=== PATIENT | female | born 1985 | race African-American/Black ===

== ENCOUNTER → 2021-09-16 | Outpatient (CLI) | payer OTHER ==
[~2021-09-16] MED LIST: IOHEXOL 350 MG/ML 100 ML VIAL. IV ONE
--- NOTE | 2021-09-16 14:32 | RAD ---
EXAM: CT chest with contrast - pulmonary embolus protocol CLINICAL HISTORY: SHORT OF AIR COMPARISON: None. TECHNIQUE: CT of the chest following the administration of intravenous contrast during the pulmonary arterial phase. Axial, coronal and sagittal reformatted images were generated including MIP images. ---PQRS compliance statement - One or more of the following individualized dose reduction techniques were utilized for this study: 1. Automated exposure control 2. Adjustment of the mA and/or kV according to patient size 3. Use of iterative reconstruction technique--- FINDINGS: CHEST: Diagnostic quality: Suboptimal contrast bolus. Pulmonary emboli: No pulmonary emboli to the level of the segmental branches. More peripheral vessel s are not well assessed. Right heart strain: None Pulmonary arteries: Normal in caliber. Heart is not enlarged. No pericardial effusion. Mild thinning of the cardiac apex. No pleural effusion. No pneumothorax. No axillary, mediastinal or hilar lymphadenopathy. Anterior med iastinal soft tissue density likely residual thymus. 3 mm left upper lobe lung nodule (image 28) 4 mm fissural lung nodule (image 49) several additional 3 -4 mm lung nodules are seen bilaterally. Visualized Upper abdomen: Unremarkable Bones: No aggressive osseous lesion is seen. IMPRESSION: 1. Suboptimal contrast bolus. No pulmonary emboli to the level of the segmental branches. More perip heral vessels are not well assessed. 2. Several lung nodules are seen bilaterally measuring up to 4 mm. Per Fleischner Society guidelines for incidentally found solid nodules measuring less than 6 mm, no follow-up is necessary if patient is considered at low risk for lung cancer. If patient is considered to be at high risk, such as with history of smoking, then CT follow-up in about 12 months can be considered. 3. Focal thickening of the cardiac apex, of uncertain clinical significance, consider further evalua tion with echocardiogram if clinically indicated. Electronically signed by: Gato Gamez MD (09/16/2021 2:30 PM) [facility]
== END ==
LOC: RAD 13:28
PROVIDERS: ATTEND Anesthesiology
DX: R91.8 Other nonspecific abnormal finding of lung field (principal); R06.02 Shortness of breath
CPT/HCPCS: 71275; Q9967

== ENCOUNTER 2021-10-19 09:26 | Emergency (ER) | payer OTHER ==
[~2021-10-19] VITALS: Ht 162.6 cm; Wt 65.9 kg
--- NOTE | 2021-10-19 10:05 | PHYS DOC ---
Past History Additional Past Medical Histor: cyst on left ovary Past Surgical History: No Surgical History Alcohol Use: None General Adult EDM: Chief Complaint: ABDOMINAL PAIN IN HPI: HPI: Patient is a 36-year-old G1 at approximately 5 to 6 weeks gestational age based on IUI. Patient has been undergoing fertility treatments. She is here because she is having left lower abdominal cramping has been going on for about 2 weeks. Has gotten more sharp and painful recently. Patient also has a history of endometriosis affecting the left as well as a left ovarian cyst. Review of Systems: Review of Systems: All other systems within normal limits except for as noted in the HPI Allergies: Allergies: Allergies Coded Allergies Type Severity Reaction Last Updated Verified No Known Drug Allergies 09/16/21 No Physical Exam: PE: Constitutional: Well developed, well nourished, no acute distress, non-toxic appearance. [] HENT: Normocephalic, atraumatic, bilateral external ears normal, nose normal. [] Eyes: PERRLA, conjunctiva normal, no discharge. [] Neck: No rigidity, supple, no stridor. [] Cardiovascular: Regular rate and rhythm, brisk cap refill [] Lungs & Thorax: Non labored symmetric respirations, no tachypnea or respiratory distress [] Abdomen: Soft, nondistended, LLQ tenderness. Skin: Warm, dry, no erythema, no rash. [] Back: Unremarkable Extremities: No deformities, range of motion grossly intact, no lower extremity edema [] Neurologic: Alert and oriented X 3, no focal deficits noted. [] Psychologic: Affect normal, judgement normal, mood normal. [] Current Patient Data: Labs: RUN DATE: 10/19/21 [facility] *LIVE* PAGE 1 RUN TIME: 1109 Specimen Inquiry PATIENT: YMAIL PARKS ACCT: [id number] LOC: [facility] U: [id number] AGE/SX: 36/F ROOM: RE10/19/[address]: JACKY FRAGOSO MD : 1985 BED: DIS: STATUS: REG ER TLOC: SPEC #: [id number] SANTI[place]O: 10/19/21-1015 STATUS: COMP REQ #: [id number] RECD: 10/19/21-[address]: JACKY FRAGOSO MD SOURCE: VAGINAL ENTR: 10/19/[address]: MARQUES MARTÍNEZ DO [facility]: ORDERED: WET PREP COMMENTS: Has specimen been collected/obtained? Y Procedure Result WET PREP Final YEAST NONE SEEN TRICHOMONAS NONE SEEN CLUE CELLS NONE SEEN WBCS NONE PRESENT RBCS NO RBCS SEEN SQUAMOUS EPS MANY Vital Signs: Vital Signs Date Time Temp Pulse Resp B/P (MAP) Pulse Ox O2 Delivery O2 Flow Rate FiO2 10/19/21 09:37 98.1 78 16 121/86 98 100 Room Air EKG: EKG: [] Radiology/Procedures: Radiology/Procedures: [place] [address] IMAGING REPORT Signed PATIENT: YAMIL PARKS ACCOUNT: [id number] : 1985 LOCATION: ER AGE: 36 SEX: F EXAM STATUS: REG ER ORD. PHYSICIAN: JACKY FRAGOSO MD REASON: LLQ PAIN X2 WEEKS, 4-5 WEEKS PROCEDURE: OB <14 WKS W/TV EXAMINATION: Pelvic ultrasound. INDICATION: Left lower quadrant pain x2 weeks COMPARISONS: None TECHNIQUE: Transabdominal and endovaginal ultrasound evaluation of the pelvis was performed. FINDINGS: MENSTRUAL STATUS: LMP 09/20/2021 BETA-HCG: Not reported time of exam. UTERUS: Uterus is normal in size and appearance measuring 7.9 x 5.1 x 4.3 cm. There is a single live intrauterine with the yolk sac measuring 3.6 mm with a crown rump length of 5.5 mm GESTATIONAL SAC: Centimeters/mean sac diameter: 0.36 [place]-rump length: 0.55 with a gestational age of 6 weeks and 2 days Heart rate: 108 bpm RIGHT OVARY/ADNEXA: Right ovary measures 3.5 x 2.7 x 2.2 cm. There is a centrally hypoechoic mass with thin internal avascular septations the mass measuring 2.1 x 1.9 x 0.8 cm this favors a ruptured corpus luteal cyst. There is normal low resistance vascular flow to the right ovary.. LEFT OVARY/ADNEXA: Not well-visualized due to overlying bowel gas. FLUID: Small amounts of simple fluid in the cul-de-sac. IMPRESSION 1. Single early live intrauterine . 2. Sonographic findings consistent with a ruptured right corpus luteal cyst. 3. Left ovary is not visualized due to overlying bowel gas. Electronically signed by: Xiang Jaquez DO (10/19/2021 11:53 AM) [id number] DICTATED AND SIGNED BY: XIANG JAQUEZ DO DATE: 10/19/21 1142 CC: JACKY FRAGOSO MD; MARQUES MARTÍNEZ DO ~MTH0 0 [] Heart Score: C/O Chest Pain: No Risk Factors: Risk Factors: DM, Current or recent (<one month) smoker, HTN, HLP, family history of CAD, obesity. Risk Scores: Score 0 - 3: 2.5% MACE over next 6 weeks - Discharge Home Score 4 - 6: 20.3% MACE over next 6 weeks - Admit for Clinical Observation Score 7 - 10: 72.7% MACE over next 6 weeks - Early Invasive Strategies Course & Med Decision Making: Course & Med Decision Making Pertinent Labs and Imaging studies reviewed. (See chart for details) [] Dragon Disclaimer: Dragon Disclaimer: This electronic medical record was generated, in whole or in part, using a voice recognition dictation system. Departure Departure: Impression: Primary Impression: Abdominal pain during in first trimester Disposition: HOME / SELF CARE / HOMELESS Condition: STABLE Referrals: MARQUES MARTÍNEZ DO (PCP) Patient Instructions: Abdominal Pain During Additional Instructions: Your beta-hCG level on 10-19-21 is 31,133. JACKY FRAGOSO MD Oct 19, 2021 10:05
[2021-10-19 10:23] LABS: BASO % 0 % (0-3); EOS # 0.1 x10^3/uL (0.0-0.7); EOS % 1 % (0-3); HEMATOCRIT 36.1 % (36.0-47.0); HEMOGLOBIN 11.9 g/dL (12.0-15.5); LYMPH # 2.7 x10^3/uL (1.0-4.8); LYMPH % 48 % (24-48); MEAN CORPUSCULAR HEMOGLOBIN 31 pg (25-35); MEAN CORPUSCULAR HGB CONC 33 g/dL (31-37); MEAN CORPUSCULAR VOLUME 93 fL (79-100); MONO # 0.4 x10^3/uL (0.0-1.1); MONO % 7 % (0-9); NEUT # 2.5 x10^3uL (1.8-7.7); NEUT % 44 % (31-73); PLATELET COUNT 253 x10^3/uL (140-400); RED CELL DISTRIBUTION WIDTH 12.3 % (11.5-14.5); WHITE BLOOD COUNT 5.7 x10^3/uL (4.0-11.0)
[2021-10-19 11:28] LABS: BACTERIA,URINE 0 /HPF (0-FEW); BILIRUBIN,URINE NEG (NEG); CLARITY,URINE CLEAR; COLOR,URINE YELLOW; GLUCOSE,URINE NEG (NEG); NITRITE,URINE NEG (NEG); SQUAMOUS EPITHELIAL CELL,UR FEW /LPF; UROBILINOGEN,URINE 0.2 mg/dL (0.2 mg/dL); WBC,URINE OCC /HPF (0-4)
--- NOTE | 2021-10-19 11:56 | RAD ---
EXAMINATION: Pelvic ultrasound. INDICATION: Left lower quadrant pain x2 weeks COMPARISONS: None TECHNIQUE: Transabdominal and endovaginal ultrasound evaluation of the pelvis was performed. FINDINGS: MENSTRUAL STATUS: LMP 09/20/2021 BETA-HCG: Not reported time of exam. UTERUS: Uterus is normal in size and appearance measuring 7.9 x 5.1 x 4.3 cm. There is a single live intraute rine with the yolk sac measuring 3.6 mm with a crown rump length of 5.5 mm GESTATIONAL SAC: Centimeters/mean sac diameter: 0.36 [place]-rump length: 0.55 with a gestational age of 6 weeks and 2 days Heart rate: 108 bpm RIGHT OVARY/ADNEXA: Right ovary measures 3.5 x 2.7 x 2.2 cm. There is a centrally hypoechoic mass with thin internal avas cular septations the mass measuring 2.1 x 1.9 x 0.8 cm this favors a ruptured corpus luteal cyst. The re is normal low resistance vascular flow to the right ovary.. LEFT OVARY/ADNEXA: Not well-visualized due to overlying bowel gas. FLUID: Small amounts of simple fluid in the cul-de-sac. IMPRESSION 1. Single early live intrauterine . 2. Sonographic findings consistent with a ruptured right corpus luteal cyst. 3. Left ovary is not visualized due to overlying bowel gas. Electronically signed by: Dario Jaquez DO (10/19/2021 11:53 AM) [id number]
[2021-10-19 12:16] LABS: CALCIUM 8.5 mg/dL (8.5-10.1); CREATININE 0.7 mg/dL (0.6-1.0); GFR 115.9; POTASSIUM 3.8 mmol/L (3.5-5.1)
[2021-10-19 12:21] LABS: ALBUMIN 4.1 g/dL (3.4-5.0); ALBUMIN/GLOBULIN RATIO 1.2 (1.0-1.7); TOTAL BILIRUBIN 0.3 mg/dL (0.2-1.0); TOTAL PROTEIN 7.4 g/dL (6.4-8.2)
[2021-10-19 12:50] VITALS: BP 123/78
[2021-10-20 21:08] LABS: CHLAMYDIA PROBE Negative (Negative)
== END 2021-10-19 12:52 | disposition home or self-care (01) ==
LOC: ER 09:26
DX: O26.891 Other specified pregnancy related conditions, first trimester (principal); R10.32 Left lower quadrant pain; Z3A.01 Less than 8 weeks gestation of pregnancy
CPT/HCPCS: 36415; 76801; 76817; 80053; 81001; 84702; 85025; 86900; 86901; 87491; 87591; 99284; Q0111